=== PATIENT | female | born 2000 | race Asian ===

== ENCOUNTER 2020-07-26 10:53 | Emergency (ER) | payer OTHER ==
[~2020-07-26] VITALS: Ht 154.9 cm; Wt 59.0 kg
[2020-07-26] MEDS ORDERED: BACTRIM DS TAB1 EAC1 PO (11:15)
[2020-07-26 12:11] LABS: URINE BLOOD NEGATIVE (Negative); URINE COLOR YELLOW; URINE GLUCOSE-RANDOM* NEGATIVE (Negative); URINE KETONES 2+ (Negative); URINE LEUKOCYTES-REFLEX NEGATIVE (Negative); URINE NITRITE-REFLEX NEGATIVE (Negative); URINE PROTEIN (DIPSTICK) 1+ (Negative); URINE SPECIFIC GRAVITY >= 1.030 (1.005-1.035)
[2020-07-26 12:14] LABS: ICTOTEST (BILI CONFIRMATORY) Negative (Negative); URINE BILIRUBIN NEGATIVE (Negative); URINE CLARITY SL HAZY
[2020-07-26 12:26] LABS: CASTS None Seen /LPF (None Seen); MUCUS >6 Heavy strn/LPF (None Seen); SQUAMOUS >10 Many /LPF (0-3)
[2020-07-26 12:27] LABS: AMORPHOUS URATES Few /LPF (None Seen); BACTERIA-REFLEX >30 Many /HPF (None Seen); URINE RBC 0-2 Rare /HPF (0-2); URINE WBC-REFLEX 0-5 Rare /HPF (0-5)
[2020-07-26 12:31] VITALS: BP 105/64
== END 2020-07-26 12:31 | disposition home or self-care (01) ==
LOC: ER 10:53
PROVIDERS: Nurse Practitioner
DX: L27.0 Generalized skin eruption due to drugs and medicaments taken internally (principal); T36.8X5A Adverse effect of other systemic antibiotics, initial encounter; Z79.2 Long term (current) use of antibiotics; Z88.2 Allergy status to sulfonamides; Y92.89 Other specified places as the place of occurrence of the external cause